=== PATIENT | female | born 1970 | race Caucasian/White ===

== ENCOUNTER → 2016-07-03 | Outpatient (CLI) | payer OTHER ==
--- NOTE | 2016-07-17 14:57 | Diagnostic Imaging Report ---
Bilateral screening mammogram The current study was also evaluated with a Computer Aided Detection (CAD) system. Indication: Screening. No current complaints stated on the questionnaire. COMPARISON: None available. The patient reportedly had prior mammograms in [place], [place] but could not obtain the prior films as the previous studies at the facility had closed. Findings: There is an 8mm oval asymmetry along the medial aspect of the right breast. No definite correlating abnormality seen on the MLO view. The left breast demonstrate no focal mass or suspicious calcification. Background scattered fibroglandular densities are seen bilaterally. IMPRESSION: Focal compression views and ultrasound evaluation for focal medial right breast asymmetry. BI-RADS 0. ACR BI-RADS Category 0: Incomplete. (Needs additional imaging evaluation). Result letter will be mailed to the patient. Note: At least 10% of breast cancer is not imaged by mammography. Dictated by: Dictated on workstation # [id number]
== END ==
LOC: RAD 08:44
PROVIDERS: ATTEND Family Medicine
DX: Z12.31 Encounter for screening mammogram for malignant neoplasm of breast (principal)

== ENCOUNTER → 2016-08-03 | Outpatient (CLI) | payer OTHER ==
--- NOTE | 2016-08-03 18:38 | Diagnostic Imaging Report ---
Right breast diagnostic mammogram. INDICATION: Medial right breast asymmetry. The current study was also evaluated with a Computer Aided Detection (CAD) system. FINDINGS: Focal compression view demonstrates less prominent asymmetry along the mid aspect of the right breast with no definitive correlate on the lateral view. IMPRESSION: Less prominent asymmetry on the focal compression view may relate to summation artifact of parenchyma. Ultrasound evaluation pending. ACR BI-RADS Category 0: Incomplete. (Needs additional imaging evaluation). Result letter will be mailed to the patient. Note: At least 10% of breast cancer is not imaged by mammography. Dictated by: Dictated on workstation # [id number]
--- NOTE | 2016-08-03 19:05 | Diagnostic Imaging Report ---
EXAMINATION: Right breast ultrasound. INDICATION: Medial right breast asymmetry. FINDINGS: At 1:30 position, 5 cm from the nipple, there is a 1.0 x 0.4 x 0.7 cm smoothly marginated hypoechoic mass with lobulated margins. Some anechoic component is seen which may indicate possible cystic component. No significant through-transmission, however, is seen. No internal vascularity with color Doppler noted. No other lesion is seen in the medial aspect of the right breast. IMPRESSION: Indeterminate 1 cm hypoechoic lesion with likely benign features could be a complicated cyst or fibroadenoma. Six-month followup mammogram and ultrasound evaluation is recommended. ACR BI-RADS Category 3: Probably benign findings. Dictated by: Dictated on workstation # [id number]
== END ==
LOC: RAD 07:53
PROVIDERS: ATTEND Family Medicine
DX: N64.89 Other specified disorders of breast (principal)